=== PATIENT | male | born 1955 | race Caucasian/White ===

== ENCOUNTER 2016-10-08 09:00 | Emergency (ER) | payer OTHER ==
[2016-10-08 09:02] VITALS: BP 169/80; PULSE 102; RESP 20; TEMP 98; O2SAT 97
[2016-10-08 09:11] VITALS: BP 170/89; PULSE 105; RESP 17; O2SAT 97
[2016-10-08] MEDS ORDERED: AMLO10TA2 PO (09:16)
[2016-10-08] MEDS ORDERED: DOXA1TAB35 PO (09:16)
[2016-10-08] MEDS ORDERED: LOSA100T PO (09:16)
--- NOTE | 2016-10-08 09:28 | PD ---
HPI . Vertigo Chief Complaint: Dizziness Time Seen by Provider: 09:17 Travel History International Travel<30 days: No Contact w/Intl Traveler<30days: No Traveled to known affect area: No History of Present Illness HPI Patient presents with 2 episodes of vertigo since midnight. He states that both episodes lasted about 15 seconds. It is exacerbated by movement. He denies any associated symptoms such as headache, blurred vision, nausea. He does report previous similar episodes. He states that it happens to him once or twice a year. He states that he was concerned about stroke this morning so presented to the emergency department for evaluation. [facility] Past Medical History Diminished Hearing: No Hypertension: Yes Tetanus Vaccination: Unknown Influenza Vaccination: No Past Surgical History Surgical History: No Previous Surgery Social History Alcohol Use: No Tobacco Use: No Substance Use: No Allergies-Medications (Allergen,Severity, Reaction): Coded Allergies: No Known Allergies (Unverified , 10/08/16) Reported Meds & Prescriptions Reported Meds & Active Scripts Active Meclizine (Meclizine HCl) 25 Mg Tab 25 Mg PO TID PRN Reported Amlodipine (Amlodipine Besylate) 10 Mg Tab 10 Mg PO DAILY Doxazosin (Doxazosin Mesylate) 2 Mg Tab 2 Mg PO DAILY Losartan (Losartan Potassium) 100 Mg Tab 100 Mg PO DAILY Review of Systems Except as stated in HPI: all other systems reviewed are Neg General / Constitutional: No: Fever, Chills Eyes: No: Blurred Vision HENT: Positive: Vertigo, No: Headaches, Congestion Cardiovascular: No: Chest Pain or Discomfort Respiratory: No: Shortness of Breath Gastrointestinal: No: Nausea, Vomiting Genitourinary: Positive: Frequency, No: Urgency, Dysuria Endocrine: Positive: Polyuria, Other (he reports a dry mouth since midnight and increased urination for about 2 days) Physical Exam Narrative GENERAL: Awake and alert and able to give his own history. He is moving his head without any apparent symptoms. SKIN: Warm and dry. HEAD: Atraumatic. Normocephalic. EYES: Pupils equal and round. ENT: No nasal bleeding or discharge. Mucous membranes pink and moist. NECK: Trachea midline. CARDIOVASCULAR: Regular rate and rhythm. He is a little bit tachycardic at around the 100. RESPIRATORY: No accessory muscle use. GASTROINTESTINAL: Abdomen soft, non-tender, nondistended. MUSCULOSKELETAL: No obvious deformities. No edema. NEUROLOGICAL: Awake and alert. No obvious cranial nerve deficits. Motor grossly within normal limits. Normal speech. PSYCHIATRIC: Appropriate mood and affect; insight and judgment normal. Data Data Last Documented VS Vital Signs Date Time Temp Pulse Resp B/P Pulse Ox O2 Delivery O2 Flow Rate FiO2 10/08/16 12:00 80 16 143/76 99 Room Air 10/08/16 09:02 98.0 Orders Electrocardiogram (10/08/16 ) Complete Blood Count With Diff (10/08/16 09:20) Comprehensive Metabolic Panel (10/08/16 09:20) Magnesium (Mg) (10/08/16 09:20) Ckmb (Isoenzyme) Profile (10/08/16 09:20) Troponin I (10/08/16 09:20) Urinalysis - C+S If Indicated (10/08/16 09:20) Ct Brain W/O Iv Contrast(Rout) (10/08/16 09:20) Ecg Monitoring (10/08/16 09:20) Iv Access Insert/Monitor (10/08/16 09:20) Oximetry (10/08/16 09:20) Meclizine (Antivert) (10/08/16 09:30) Sodium Chloride 0.9% Flush (Ns Flush) (10/08/16 09:30) CKMB (10/08/16 09:20) CKMB% (10/08/16 09:20) Lorazepam Inj (Ativan Inj) (10/08/16 10:45) Sodium Chlor 0.9% 1000 Ml Inj (Ns 1000 M (10/08/16 11:30) Labs Laboratory Tests Test 10/08/16 10/08/16 09:20 09:50 White Blood Count 6.8 TH/MM3 Red Blood Count 4.50 MIL/MM3 Hemoglobin 14.5 GM/DL Hematocrit 41.1 % Mean Corpuscular Volume 91.4 FL Mean Corpuscular Hemoglobin 32.1 PG Mean Corpuscular Hemoglobin 35.2 % Concent Red Cell Distribution Width 13.2 % Platelet Count 204 TH/MM3 Mean Platelet Volume 8.8 FL Neutrophils (%) (Auto) 69.6 % Lymphocytes (%) (Auto) 21.1 % Monocytes (%) (Auto) 6.8 % Eosinophils (%) (Auto) 1.2 % Basophils (%) (Auto) 1.3 % Neutrophils # (Auto) 4.8 TH/MM3 Lymphocytes # (Auto) 1.4 TH/MM3 Monocytes # (Auto) 0.5 TH/MM3 Eosinophils # (Auto) 0.1 TH/MM3 Basophils # (Auto) 0.1 TH/MM3 CBC Comment DIFF FINAL Differential Comment Sodium Level 142 MEQ/L Potassium Level 3.6 MEQ/L Chloride Level 107 MEQ/L Carbon Dioxide Level 24.5 MEQ/L Anion Gap 11 MEQ/L Blood Urea Nitrogen 15 MG/DL Creatinine 1.16 MG/DL Estimat Glomerular Filtration 64 ML/MIN Rate Random Glucose 137 MG/DL Calcium Level 8.4 MG/DL Magnesium Level 2.2 MG/DL Total Bilirubin 0.5 MG/DL Aspartate Amino Transf 12 U/L (AST/SGOT) Alanine Aminotransferase 29 U/L (ALT/SGPT) Alkaline Phosphatase 90 U/L Total Creatine Kinase 205 U/L Creatine Kinase MB 2.8 NG/ML Troponin I LESS THAN 0.02 NG/ML Total Protein 7.7 GM/DL Albumin 4.0 GM/DL Urine Color YELLOW Urine Turbidity CLEAR Urine pH 8.0 Urine Specific [place] 1.011 Urine Protein NEG mg/dL Urine Glucose (UA) NEG mg/dL Urine Ketones NEG mg/dL Urine Occult Blood NEG Urine Nitrite NEG Urine Bilirubin NEG Urine Urobilinogen LESS THAN 2.0 MG/DL Urine Leukocyte Esterase NEG Urine RBC LESS THAN 1 /hpf Urine WBC 1 /hpf Microscopic Urinalysis Comment CULT NOT INDICATED MDM Medical Decision Making Medical Screen Exam Complete: Yes Emergency Medical Condition: Yes Medical Record Reviewed: Yes (he has no old records in our system.) Interpretation(s) EKG shows a sinus rhythm with a rate of 97. He does have some J-point depression in leads V2, V3 and V4. Differential Diagnosis Differential diagnosis of dizziness includes but is not limited to vertigo, dehydration, acute blood loss, sepsis, ACS Narrative Course Patient presents for evaluation of dizziness. He describes vertigo. CBC is normal. His chemistries are unremarkable. Cardiac enzymes are negative. UA is negative. CT of his head is negative. The patient reports no further episodes of vertigo but states that he feels "unsteady". I will give him a dose of Ativan. Following the Ativan, the patient went from the lying to sitting position. Rate increased to 105. I have given him a fluid bolus. Diagnosis Primary Impression: Vertigo Additional Impression: Dehydration Patient Instructions: Dehydration (ED), General Instructions Med/Other Pt SpecificInfo: Prescription(s) given Scripts Meclizine 25 Mg Tab25 Mg PO TID PRN (VERTIGO) #10 TAB Ref 0 Prov:Yun Mujica MD 10/08/16 Disposition: 01 DISCHARGE HOME Condition: Stable Yun Mujica MD Oct 08, 2016 09:28
[2016-10-08 09:30] VITALS: RESP 16; O2SAT 99
[2016-10-08] MEDS ORDERED: MECLIZINE HCL 25 MG TAB PO ONE (09:30)
[2016-10-08] MEDS ORDERED: SODIUM CHLORIDE 0.9% FLUSH 5 ML FLUSH IVF PRN (09:30)
[2016-10-08 09:35] LABS: AUTOMATED NEUTROPHIL # 4.8 TH/MM3 (1.8-7.7); BASOPHIL # 0.1 TH/MM3 (0-0.2); BASOPHIL % 1.3 % (0.0-2.0); EOSINOPHIL # 0.1 TH/MM3 (0-0.4); EOSINOPHIL % 1.2 % (0.0-4.0); HEMATOCRIT 41.1 % (39.0-51.0); HEMO FLAGS DIFF FINAL; LYMPH % 21.1 % (9.0-44.0); LYMPHOCYTE # 1.4 TH/MM3 (1.0-4.8); MEAN CELL VOLUME 91.4 FL (80.0-100.0); MEAN CORPUSCULAR HEMOGLOBIN 32.1 PG (27.0-34.0); MEAN CORPUSCULAR HGB CONC 35.2 % (32.0-36.0); MONO % 6.8 % (0.0-8.0); NEUT % 69.6 % (16.0-70.0); PLATELET COUNT 204 TH/MM3 (150-450); RED CELL DISTRIBUTION WIDTH 13.2 % (11.6-17.2); WHITE BLOOD COUNT 6.8 TH/MM3 (4.0-11.0)
[2016-10-08 09:51] LABS: ANION GAP 11 MEQ/L (5-15); AST (GOT) 12 U/L (15-37); BICARBONATE 24.5 MEQ/L (21.0-32.0); BLOOD UREA NITROGEN 15 MG/DL (7-18); CHLORIDE 107 MEQ/L (98-107); GLOMERULAR FILTRATION RATE 64 ML/MIN (>89); MAGNESIUM 2.2 MG/DL (1.5-2.5); POTASSIUM 3.6 MEQ/L (3.5-5.1); SODIUM (NA) 142 MEQ/L (136-145)
[2016-10-08 09:55] LABS: ALKALINE PHOSPHATASE 90 U/L (45-117); ALT (GPT) 29 U/L (12-78); CREATINE KINASE 205 U/L (39-308); TOTAL BILIRUBIN ADULT 0.5 MG/DL (0.2-1.0)
[2016-10-08 10:00] VITALS: BP 176/83; PULSE 93; RESP 16; O2SAT 99
--- NOTE | 2016-10-08 10:01 | RADRPT ---
EXAM DATE/TIME: 10/08/2016 09:39 [place] COMPARISON: No previous studies available for comparison. INDICATIONS : Dizziness. RADIATION DOSE: 47.38 CTDIvol (mGy) MEDICAL HISTORY : Hypertension. SURGICAL HISTORY : None. ENCOUNTER: Initial ACUITY: 1 day PAIN SCALE: 5/10 LOCATION: cranial TECHNIQUE: Multiple contiguous axial images were obtained of the head. Using automated exposure control and adjustment of the mA and/or kV according to patient size, radiation dose was kept as low as reasonably achievable to obtain optimal diagnostic quality images. FINDINGS: CEREBRUM: The ventricles are normal for age. No evidence of midline shift, mass lesion, hemorrha ge or acute infarction. No extra-axial fluid collections are seen. POSTERIOR FOSSA: The cerebellum and brainstem are intact. The 4th ventricle is midline. The cer ebellopontine angle is unremarkable. EXTRACRANIAL: The visualized portion of the orbits is intact. SKULL: The calvaria is intact. No evidence of skull fracture. CONCLUSION: Negative for acute process. Capo Morley MD FACR on October 08, 2016 at 9:59 Board Certified Radiologist. This report was verified electronically.
[2016-10-08 10:10] LABS: CKMB 2.8 NG/ML (0.5-3.6)
[2016-10-08 10:15] LABS: BLOOD, URINE NEG (NEG); GLUCOSE,URINE NEG (NEG); KETONE, URINE NEG (NEG); NITRITE,URINE NEG (NEG); URINE COLOR YELLOW (YELLW/STRAW)
[2016-10-08 10:17] LABS: COMMENT (UR) CULT NOT INDICATED; CULTURE IF INDICATED CULT NOT INDICATED
[2016-10-08] MEDS ORDERED: LORazepam 2 MG/ML VIAL IV PUSH ONE (10:45)
[2016-10-08] MEDS ORDERED: SODIUM CHLOR 0.9% 1000 ML INJ 1,000 ML IV ONE (11:30)
[2016-10-08 12:00] VITALS: BP 143/76; PULSE 80; RESP 16; O2SAT 99
[2016-10-08] MEDS ORDERED: MECL-62 PO (12:03)
--- NOTE | 2016-10-08 14:26 | EKG ---
Date Performed: 10/08/2016 Time Performed: 09:19:09 PTAGE: 61 years EKG: Sinus rhythm No significant ST/T wave changes NO PREVIOUS TRACING DOCTOR: Nishant Gan Interpretating Date/Time 10/08/2016 14:24:26
== END 2016-10-08 12:24 | disposition home or self-care (01) ==
LOC: NEPA 09:00
DX: R42 Dizziness and giddiness (principal); E86.0 Dehydration; R00.0 Tachycardia, unspecified; I10 Essential (primary) hypertension; R35.0 Frequency of micturition
CPT/HCPCS: 70450; 80053; 81001; 82550; 82552; 83735; 84484; 85025; 93005; 96374; 99284; J2060; J7030